=== PATIENT | male | born 1975 | race African-American/Black ===

== ENCOUNTER 2018-12-12 18:54 | Emergency (ER) | payer SELFPAY ==
[~2018-12-12] VITALS: Ht 190.5 cm; Wt 110.7 kg
[2018-12-12] MEDS ORDERED: ACETAMINOPHEN 325 MG TAB PO ONE (19:30)
[2018-12-12 19:37] LABS: STREPTOCOCCUS GRP A ANTIGEN NEGATIVE (NEGATIVE)
[2018-12-12 19:42] LABS: INFLUENZAE A&B ANTIGEN (RAPID) NEGATIVE (NEGATIVE)
--- NOTE | 2018-12-12 19:50 | Diagnostic Imaging Report ---
Frontal and lateral views of the chest. HISTORY: Shortness of breath passing out, cough, headache COMPARISON: None available. DISCUSSION: Lungs: Low lung volumes result in bibasilar vascular crowding, accentuation of the pulmonary interstitial markings, central pulmonary vasculature, and the cardiac silhouette. Allowing for these limitations, the findings are as follows: Prominence of the central bronchial interstitial markings. Mild left basilar atelectasis. No evidence of a consolidative pneumonia or pulmonary alveolar edema. Pleura: No pleural effusion or pneumothorax. Heart and mediastinum: The cardiomediastinal silhouette appears unremarkable. Bones and soft tissues: Appear unremarkable. IMPRESSION: 1. Findings which can be seen in the setting of a nonspecific bronchitis. 2. Mild left basilar atelectasis. Signed by: Dr. Charles Jolley D.O., M.M.M. on 12/12/2018 7:47 PM
[2018-12-12] MEDS ORDERED: PREDNISONE20 MG PO (22:29)
[2018-12-12] MEDS ORDERED: AZITHROMYCIN250 MG PO (22:29)
[2018-12-12 23:07] VITALS: BP 125/85
== END 2018-12-12 23:00 | disposition home or self-care (01) ==
LOC: ER 18:54
DX: R50.9 Fever, unspecified (principal); R05 Cough; J20.9 Acute bronchitis, unspecified; J00 Acute nasopharyngitis [common cold]; I10 Essential (primary) hypertension; F17.210 Nicotine dependence, cigarettes, uncomplicated
CPT/HCPCS: 71046; 83518; 87070; 87400; 93005; 99284